=== PATIENT | male | born 1990 | race Two or more races ===

== ENCOUNTER 2020-03-21 10:38 | Emergency (ER) | payer SELFPAY ==
[2020-03-21 10:43] VITALS: BP 124/76; PULSE 74; TEMP 98; BMI 35.9
--- NOTE | 2020-03-21 11:44 | PDOC ---
History of Present Illness - General Chief Complaint: Injury Stated Complaint: L/ FOOT INJURY Time Seen by Provider: 03/21/20 10:59 History Source: Patient Exam Limitations: Clinical Condition - History of Present Illness Initial Comments: 03/21/20 11:46 Patient with no significant past medical history present for evaluation of left toes pain status post heavy machinery falling on ice left second and third toes while at work 3 days ago. Patient reported increased pain to 2nd-4th toes on the left foot with ambulation. Patient did not seek any medical evaluation until today when his partner told him to come to the ER. Patient reported taking home Motrin for pain. Denies any other symptoms Occurred: reports: other (3 days) Past History - Medical History Allergies/Adverse Reactions: Allergies Allergy/AdvReac Type Severity Reaction Status Date / Time No Known Allergies Allergy Verified 03/21/20 10:40 Home Medications: Ambulatory Orders Ibuprofen 600 mg PO TID PRN 03/21/20 COPD: No - Psycho-Social/Smoking History Smoking History: Never smoked - Substance Abuse Hx (Audit-C & DAST Scrn) How often the patient has a drink containing alcohol: Never Score: In Men: 4 or > Positive; In Women: 3 or > Positive: 0 Screen Result (Pos requires Nsg. Audit-10AR): Negative In the last yr the pt used illegal drug/Rx for NonMed reason: No Score: Yes response is considered Positive: 0 Screen Result (Positive result requires Nsg. DAST-10): Negative Review of Systems - Review of Systems Able to Perform ROS?: Yes Is the patient limited [place] Citizen proficient: No Constitutional: No: Chills, Fever, Malaise HEENTM: No: Symptoms Reported, See HPI, Eye Pain, Blurred Vision, Tearing, Recent change in vision, Double Vision, Cataracts, Ear Pain, Ocular Prothesis, Ear Discharge, Nose Pain, Nose Congestion, Tinnitus, Nose Bleeding, Hearing Loss, Throat Pain, Throat Swelling, Mouth Pain, Dental Problems, Difficulty Swallowing, Mouth Swelling, Other Respiratory: No: Symptoms reported, See HPI, Cough, Orthopnea, Shortness of Breath, SOB with Exertion, SOB at Rest, Stridor, Wheezing, Productive cough, Hemoptysis, Other Cardiac (ROS): No: Symptoms Reported, See HPI, Chest Pain, Edema, Irregular Heart Rate, Lightheadedness, Palpitations, Syncope, Chest Tightness, Other Musculoskeletal: Yes: Symptoms Reported, See HPI, Joint Pain (left toes pain), Muscle Pain (left toes pain) Integumentary: Yes: Symptoms Reported, See HPI, Other (wound to left toe pain) Neurological: No: Weakness All Other Systems: Reviewed and Negative *Physical Exam - Vital Signs Last Vital Signs Temp Pulse Resp BP Pulse Ox 98 F 74 17 124/76 98 03/21/20 10:42 03/21/20 10:42 03/21/20 10:42 03/21/20 10:42 03/21/20 10:42 - Physical Exam 03/21/20 11:52 GENERAL: Well developed, well nourished. Awake and alert in mild acute distress. PULMONARY: No evidence of respiratory distress. MUSCULOSKELETAL : blister formation to dorsal aspect of left second toe with mild swelling of second and third left toes. No tenderness to rest of foot. No visible deformity. Mild bleeding to blister site of left second toe. SKIN: Warm and dry. Normal capillary refill. 1 mm blister formation to dorsal aspect of distal phalange of left second toe. NEUROLOGICAL: Alert, awake, appropriate. No motor deficits in the lower extremities. Gait is normal without ataxia. PSYCHIATRIC: Cooperative. Good eye contact. Appropriate mood and affect. General Appearance: Yes: Nourished, Appropriately Dressed. No: Apparent Distress ED Treatment Course - RADIOLOGY Radiology Studies Ordered: Category Date Time Status FOOT-LEFT [RAD] Stat Radiology 03/21/20 11:02 Ordered Medical Decision Making - Medical Decision Making 03/21/20 11:48 Patient with no significant past medical history present for evaluation of left toes pain status post heavy machinery falling on ice left second and third toes while at work 3 days ago. Patient reported increased pain to 2nd-4th toes on the left foot with ambulation. Patient did not seek any medical evaluation until today when his partner told him to come to the ER. Patient reported taking home Motrin for pain. Denies any other symptoms Exam significant for blister formation to dorsal aspect of left second toe with mild swelling of second and third left toes. No tenderness to rest of foot. No visible deformity. Mild bleeding to blister site of left second toe. X-ray of left foot shows possible questionable distal phalange fracture of left second toe with no other findings to foot. No clear fracture to rest of the foot. Left second toe kaur taped to third toe with pressure dressing. Patient tolerated procedure well. Patient advised to wear open toe shoes and take home Motrin as needed for pain with podiatry follow-up Discharge - Discharge Information Problems reviewed: Yes Clinical Impression/Diagnosis: Crushing injury of toe of left foot Qualifiers: Encounter type: initial encounter Qualified Code(s): S97.102A - Crushing injury of unspecified left toe(s), initial encounter Condition: Stable Disposition: HOME - Admission No - Follow up/Referral Referrals: Krissy Brambila MD [Staff Physician] - - Patient Discharge Instructions Patient Printed Discharge Instructions: How to Kaur Tape Additional Instructions: Continue kaur taping to help with toe pain. Take home Motrin as needed for pain. Follow-up with referred podiatry if symptoms persist for more than 4 days - Post Discharge Activity Work/Back to School Note: Back to Work
== END 2020-03-21 11:53 | disposition home or self-care (01) ==
LOC: JERFT 10:38
DX: S97.102A Crushing injury of unspecified left toe(s), initial encounter (principal)
CPT/HCPCS: 73630-TC-LT; 99283-25